=== PATIENT | male | born 1995 | race Caucasian/White ===

== ENCOUNTER 2016-11-24 08:27 | Emergency (ER) ==
[2016-11-24] MEDS ORDERED: LIDOCAINE 1 % AMP 5 ML (SUTURES) SUBCUT STA (08:41)
[2016-11-24 08:50] VITALS: BP 112/71; TEMP 98.3; BMI 20.2
[2016-11-24 09:11] LABS: BASOPHILS % (AUTO) 0.4 % (0.0-3.0); EOSINOPHILS % (AUTO) 0.4 % (0.0-7.0); HEMATOCRIT 43.9 % (42.0-52.0); HEMOGLOBIN 15.1 g/dl (14.0-18.0); IMMATURE GRANULOCYTE % (AUTO) 0.4 % (0.0-5.0); LYMPHOCYTES # (AUTO) 1.5 K/uL (0.60-3.4); LYMPHOCYTES % (AUTO) 14.8 (10.0-50.0); MEAN CORPUSCULAR HEMOGLOBIN 30.5 pg (27.0-31.0); MEAN CORPUSCULAR HGB CONC 34.4 (31.8-35.4); MEAN CORPUSCULAR VOLUME 88.7 fl (80.0-94.0); MONOCYTES # (AUTO) 0.6 K/uL (0.4-2.0); MONOCYTES % (AUTO) 5.8 (0-10); NEUTROPHILS # (AUTO) 7.8 K/ul (2.0-6.9); NEUTROPHILS % (AUTO) 78.2; PLATELET COUNT 177 10^3/uL (140-440); RED BLOOD COUNT 4.95 10^6/ul (4.70-6.10); WHITE BLOOD COUNT 9.92 K/ul (4.2-10.2)
[2016-11-24 09:25] LABS: PARTIAL THROMBOPLASTIN TIME 23.2 SEC (23.9-40.0); PROTHROMBIN TIME 11.5 SEC (9.3-11.0)
[2016-11-24 09:34] LABS: COCAIN SCREEN,URINE NEGATIVE (NEGATIVE)
[2016-11-24 09:37] LABS: ALBUMIN 4.6 g/dL (3.4-5.0); ALBUMIN/GLOBULIN RATIO 1.48; ANION GAP 11.2; BILIRUBIN,TOTAL 0.59 mg/dL (0.00-1.20); BUN/CREATININE RATIO 13.33; CALCIUM 9.7 mg/dL (8.2-10.2); CREATININE 1.2 mg/dL (0.60-1.10); POTASSIUM 4.2 mmol/L (3.5-5.1); TOTAL PROTEIN 7.7 g/dL (6.4-8.2)
[2016-11-24 09:37] LABS: ACETAMINOPHEN < 3 ug/ml (10-30); SALICYLATE < 5.0 mg/dL (2.8-20.0)
--- NOTE | 2016-11-24 09:40 | ED.PDOC ---
General ED Provider: Dr. KATIE CARRANZA Chief Complaint: Overdose Stated Complaint: OVERDOSE XANAX Time Seen by Physician: 08:32 Mode of Arrival: Ambulance Information Source: Patient Exam Limitations: No limitations Nursing and Triage Documentation Reviewed and Agree: Yes EENT Complaint Exam - Dental/Oral Complaint/Exam Mechanism of Injury: No known trauma Onset/Duration: TOOK 3 XANAX THIS MORNING 8 AM Symptoms Are: Resolved Initial Severity: Mild Current Severity: Mild (HAS DENTAL PAIN PILLS WERE TAKEN FOR PAIN CONTROL NO SUICIDAL IDEATION, PLAN SAME THING FOR HOMOCIDAL ISSUES) Aggravating: Reports: Heat, Cold, Chewing Alleviating: Reports: None Associated Signs and Symptoms: Denies: Swelling, Discharge, Fever, Foul odor, Foul taste in mouth Related History: Reports: Similar episode Cardiac Risk Factors: Reports: None Dental/Oral Surgical History: Reports: None Tooth Findings: Present: Gross decay, Gross caries, Dental fracture Cervical Lymphadenopathy Present: No Facial Swelling Present: No Bleeding Present: No Oropharynx Findings: Absent: Clots, Active bleeding Septal Hematoma: No Foreign Body Present: No Dysphagia Present: No Drooling Present: No Asymmetrical Tonsillar Swelling Present: No Uvula Midline: No Anastasia-tonsillar Fluctuence: No Trismus Present: No Palatal Petechiae Present: No Scarlatinaform Rash Present: No Teeth Picture: 1 - DECAY , BROKEN Differential Diagnoses: Dental Caries Review of Systems - Review Of Systems Constitutional: Reports: No symptoms Eyes: Reports: No symptoms Ears, Nose, Mouth, Throat: Reports: No symptoms Respiratory: Reports: No symptoms Cardiac: Reports: No symptoms GI: Reports: No symptoms : Reports: No symptoms Musculoskeletal: Reports: No symptoms Skin: Reports: No symptoms Neurological: Reports: No symptoms Endocrine: Reports: No symptoms Hematologic/Lymphatic: Reports: No symptoms All Other Systems: Reviewed and Negative Past Medical History - Past Medical History Previously Healthy: Yes Endocrine: Reports: None Cardiovascular: Reports: None Respiratory: Reports: None Hematological: Reports: None Gastrointestinal: Reports: None Genitourinary: Reports: None Neuro/Psych: Reports: None Musculoskeletal: Reports: None Cancer: Reports: None - Surgical History General Surgical History: Reports: None - Family History Family History: Reports: None - Social History Smoking Status: Current some day smoker Hx Substance Use: Yes Alcohol Screening: None Physical Exam - Physical Exam Appearance: Well-appearing, No pain distress, Well-nourished Eyes: IMANI, EOMI, Conjunctiva clear ENT: Ears normal, Nose normal, Oropharynx normal Respiratory: Airway patent, Breath sounds clear, Breath sounds equal, Respirations nonlabored Cardiovascular: RRR, Pulses normal, No rub, No murmur GI/: Soft, Nontender, No masses, Bowel sounds normal, No Organomegaly Musculoskeletal: Normal strength, ROM intact, No edema, No calf tenderness Skin: Warm, Dry, Normal color Neurological: Sensation intact, Motor intact, Reflexes intact, Cranial nerves intact, Alert, Oriented Psychiatric: Affect appropriate, Mood appropriate Critical Care Note - Critical Care Note Total Time (mins): 0 Course - Course Hematology/Chemistry: 11/24/16 09:08 Orders, Labs, Meds: Lab Review 11/24/16 11/24/16 09:08 09:13 WBC 9.92 RBC 4.95 Hgb 15.1 Hct 43.9 MCV 88.7 MCH 30.5 MCHC 34.4 RDW Coeff of Maria Teresa 12.3 Plt Count 177 Immature Gran % (Auto) 0.4 Neut % (Auto) 78.2 Lymph % (Auto) 14.8 Mccreary % (Auto) 5.8 Eos % (Auto) 0.4 Baso % (Auto) 0.4 Immature Gran # (Auto) 0.0 Neut # 7.8 H Lymph # 1.5 Mccreary # 0.6 Eos # 0.0 Baso # 0.0 PT 11.5 H INR 1.12 APTT 23.2 L Urine Opiates Screen Positive Ur Oxycodone Screen Negative Urine Methadone Screen Negative Ur Propoxyphene Screen Negative Ur Barbiturates Screen Negative U Tricyclic Antidepress Negative Ur Phencyclidine Scrn Negative Ur Amphetamine Screen Negative U Methamphetamines Scrn Negative U Benzodiazepines Scrn Positive Urine Cocaine Screen Negative U Cannabinoids Screen Positive Orders Category Date Time Status EKG-(ED ONLY) Stat CARDIO 11/24/16 08:41 Completed ACETAMINOPHEN Stat LAB 11/24/16 08:41 Received CBC W/ AUTO DIFF Stat LAB 11/24/16 09:08 Completed COMPREHENSIVE METABOLIC PANEL Stat LAB 11/24/16 09:08 Received PARTIAL THROMBOPLASTIN TIME Stat LAB 11/24/16 09:08 Completed PT WITH INR Stat LAB 11/24/16 09:08 Completed SALICYLATE Stat LAB 11/24/16 08:41 Received URINE DRUG SCREEN (RAPID FOR ED) [DRUG SCREEN, URINE, LAB 11/24/16 09:13 Completed RAPID] Stat Lidocaine HCl/Pf [Lidocaine 1 % Amp 5 ml (Sutures)] MEDS 11/24/16 08:41 Discontinued 5 ml SUBCUT ONCE STA Medications Discontinued Medications Generic Name Dose Route Start Last Admin Trade Name Freq PRN Reason Stop Dose Admin Lidocaine HCl 5 ml 11/24/16 08:41 Lidocaine 1 % Amp 5 Ml (Sutures) SUBCUT 11/24/16 08:42 ONCE STA Vital Signs: Temp Pulse Resp BP Pulse Ox 11/24/16 08:32 98.3 F 115 H 20 112/71 99 Departure - Departure Time of Disposition: 09:41 (DENIED TAKING PAIN MEDS AGAIN TOOK XANAX FOR DENTAL PAIN, DURING DISCHARGE RAY WAS PRESENT ) Disposition: HOME SELF-CARE Discharge Problem: Drug overdose, Pain, dental Instructions: Dental Abscess (ED), Toothache (ED), Benzodiazepine Overdose (ED) Condition: Good Pt referred to PMD for follow-up: No Additional Instructions: Please call your Family Physician as soon as possible to schedule a follow-up appointment. Prescriptions: Hydrocodone/Acetaminophen [[place] 5-325 Tablet] 1 each PO Q6HR PRN #7 tablet PRN Reason: PAIN Clindamycin HCl 300 mg PO Q8HR #21 capsule Allergies/Adverse Reactions: Allergies amoxicillin Adverse Reaction (Verified 11/24/16 08:32) amoxicillin trihydrate [From Augmentin] Adverse Reaction (Verified 11/24/16 08: 32) potassium clavulanate [From Augmentin] Adverse Reaction (Verified 11/24/16 08:32 ) Home Medications: Ambulatory Orders Alprazolam [Xanax] 0.5 mg PO QID 11/24/16 Clindamycin HCl 300 mg PO Q8HR #21 capsule 11/24/16 Hydrocodone/Acetaminophen [[place] 5-325 Tablet] 1 each PO Q6HR PRN #7 tablet Disposition Discussed With: Patient
== END 2016-11-24 10:00 | disposition home or self-care (01) ==
LOC: ED 08:27
DX: T42.4X1A Poisoning by benzodiazepines, accidental (unintentional), initial encounter (principal); K08.89 Other specified disorders of teeth and supporting structures; K02.7 Dental root caries; S02.5XXA Fracture of tooth (traumatic), initial encounter for closed fracture; F17.210 Nicotine dependence, cigarettes, uncomplicated
CPT/HCPCS: 36415; 80053; 80306; 80307; 85025; 85610; 85730; 93005; 93010; 99283

== ENCOUNTER 2017-03-16 00:42 | Emergency (ER) ==
[2017-03-16 00:52] VITALS: BP 137/77; TEMP 98.9; BMI 19.5
[2017-03-16] MEDS ORDERED: CLEOCIN PO STA (01:37)
--- NOTE | 2017-03-16 01:40 | ED.PDOC ---
General ED Provider: Dr. SOWMYA ROSALES Chief Complaint: Tooth Problem Stated Complaint: been hurting in the rt lower gum, and swollen, draianing something. pain 06/12 Time Seen by Physician: 01:37 Mode of Arrival: Walk-In Information Source: Patient Nursing and Triage Documentation Reviewed and Agree: Yes EENT Complaint Exam - Dental/Oral Complaint/Exam Mechanism of Injury: No known trauma Symptoms Are: Still present Timing: Constant Initial Severity: Moderate Character: Reports: Dull, Aching Aggravating: Reports: Heat, Cold, Chewing Alleviating: Reports: None Associated Signs and Symptoms: Reports: Swelling, Foul odor, Foul taste in mouth Related History: Reports: Similar episode Cardiac Risk Factors: Reports: None Dental/Oral Surgical History: Reports: None Tooth Findings: Present: Percussion tenderness, Gross decay, Abcess Cervical Lymphadenopathy Present: No Facial Swelling Present: No Bleeding Present: No Teeth Picture: 1 - caries, swollen gums Differential Diagnoses: Dental Abcess Review of Systems - Review Of Systems Constitutional: Reports: No symptoms Eyes: Reports: No symptoms Ears, Nose, Mouth, Throat: Reports: Mouth pain, Mouth swelling Respiratory: Reports: No symptoms Cardiac: Reports: No symptoms GI: Reports: No symptoms : Reports: No symptoms Musculoskeletal: Reports: No symptoms Skin: Reports: No symptoms Neurological: Reports: No symptoms Endocrine: Reports: No symptoms Hematologic/Lymphatic: Reports: No symptoms All Other Systems: Reviewed and Negative Past Medical History - Past Medical History Previously Healthy: Yes Endocrine: Reports: None Cardiovascular: Reports: None Respiratory: Reports: None Hematological: Reports: None Gastrointestinal: Reports: None Genitourinary: Reports: None Neuro/Psych: Reports: None Musculoskeletal: Reports: None Cancer: Reports: None - Surgical History General Surgical History: Reports: None - Family History Family History: Reports: None - Social History Smoking Status: Current some day smoker Smoking Cessation Counseling Time: > 3 min - 10 min Hx Substance Use: No Alcohol Screening: None - Immunizations Tetanus Shot up to Date: Yes Physical Exam - Physical Exam Appearance: Well-appearing, No pain distress, Well-nourished Eyes: IMANI, EOMI, Conjunctiva clear ENT: Ears normal, Nose normal, Oropharynx normal Respiratory: Airway patent, Breath sounds clear, Breath sounds equal, Respirations nonlabored Cardiovascular: RRR, Pulses normal, No rub, No murmur GI/: Soft, Nontender, No masses, Bowel sounds normal, No Organomegaly Musculoskeletal: Normal strength, ROM intact, No edema, No calf tenderness Skin: Warm, Dry, Normal color Neurological: Sensation intact, Motor intact, Reflexes intact, Cranial nerves intact, Alert, Oriented Psychiatric: Affect appropriate, Mood appropriate Critical Care Note - Critical Care Note Total Time (mins): 0 Course - Course Orders, Labs, Meds: Orders Category Date Time Status Clindamycin HCl [Cleocin] MEDS 03/16/17 01:37 Stat 300 mg PO ONCE STA Ketorolac Tromethamine [Toradol] MEDS 03/16/17 01:37 Stat 30 mg IM ONCE STA Vital Signs: Temp Pulse Resp BP Pulse Ox 03/16/17 00:46 98.9 F 104 H 20 137/77 99 Departure - Departure Time of Disposition: 01:41 Disposition: HOME SELF-CARE Discharge Problem: Dental abscess Instructions: Dental Abscess (ED) Condition: Stable Pt referred to PMD for follow-up: Yes (dentist\) Additional Instructions: needs f/u with dentist, hygiene discussed Prescriptions: Clindamycin HCl 300 mg PO TID #15 capsule Hydrocodone/Acetaminophen [[place] 5-325 Tablet] 1 tab PO TID PRN #12 tablet PRN Reason: PAIN Allergies/Adverse Reactions: Allergies amoxicillin Adverse Reaction (Verified 03/16/17 00:51) amoxicillin trihydrate [From Augmentin] Adverse Reaction (Verified 03/16/17 00: 51) potassium clavulanate [From Augmentin] Adverse Reaction (Verified 03/16/17 00:51 ) Home Medications: Ambulatory Orders Clindamycin HCl 300 mg PO TID #15 capsule 03/16/17 Hydrocodone/Acetaminophen [[place] 5-325 Tablet] 1 tab PO TID PRN #12 tablet 03/16 Disposition Discussed With: Patient
[2017-03-16] MEDS: TORADOL IM STA ×2 (01:48→01:53)
== END 2017-03-16 01:53 | disposition home or self-care (01) ==
LOC: ED 00:42
DX: K04.7 Periapical abscess without sinus (principal); F17.210 Nicotine dependence, cigarettes, uncomplicated
CPT/HCPCS: 99282

== ENCOUNTER 2017-07-27 23:48 | Emergency (ER) ==
[2017-07-27 23:59] VITALS: BP 121/68; TEMP 98.9; BMI 19.1
[2017-07-28] MEDS ORDERED: CLEOCIN PO STA (00:18)
[2017-07-28] MEDS ORDERED: NORCO 10-325 PO STA (00:18)
--- NOTE | 2017-07-28 00:21 | ED.PDOC ---
General ED Provider: Dr. FANI RIVERA-ER Chief Complaint: Tooth Problem Stated Complaint: my tooth is swollen and it hurts Time Seen by Physician: 00:19 Mode of Arrival: Walk-In Information Source: Patient Exam Limitations: No limitations Nursing and Triage Documentation Reviewed and Agree: Yes EENT Complaint Exam - Dental/Oral Complaint/Exam Mechanism of Injury: No known trauma Onset/Duration: 2 daysa Symptoms Are: Still present Timing: Constant Initial Severity: Mild Current Severity: Moderate Location: right lower molar Character: Reports: Dull, Aching, Throbbing Aggravating: Reports: Heat, Cold, Chewing Alleviating: Reports: None Associated Signs and Symptoms: Reports: Swelling. Denies: Discharge, Fever, Foul odor, Foul taste in mouth Related History: Reports: Similar episode, Previous tooth problem Cardiac Risk Factors: Reports: None Dental/Oral Surgical History: Reports: None Tooth Findings: Present: Percussion tenderness, Gross decay, Gross caries Cervical Lymphadenopathy Present: No Facial Swelling Present: No Bleeding Present: No Oropharynx Findings: Absent: Clots, Active bleeding Septal Hematoma: No Foreign Body Present: No Dysphagia Present: No Drooling Present: No Asymmetrical Tonsillar Swelling Present: No Uvula Midline: Yes Anastasia-tonsillar Fluctuence: No Trismus Present: No Palatal Petechiae Present: No Scarlatinaform Rash Present: No Differential Diagnoses: Dental Abcess, Dental Caries, Gingivitis, Odontogenic Pain, Periodontic Disease Review of Systems - Review Of Systems Constitutional: Reports: No symptoms Eyes: Reports: No symptoms Ears, Nose, Mouth, Throat: Reports: Mouth pain, Mouth swelling Respiratory: Reports: No symptoms Cardiac: Reports: No symptoms GI: Reports: No symptoms : Reports: No symptoms Musculoskeletal: Reports: No symptoms Skin: Reports: No symptoms Neurological: Reports: No symptoms Endocrine: Reports: No symptoms Hematologic/Lymphatic: Reports: No symptoms All Other Systems: Reviewed and Negative Past Medical History - Past Medical History Previously Healthy: Yes Endocrine: Reports: None Cardiovascular: Reports: None Respiratory: Reports: None Hematological: Reports: None Gastrointestinal: Reports: None Genitourinary: Reports: None Neuro/Psych: Reports: None Musculoskeletal: Reports: None Cancer: Reports: None - Surgical History General Surgical History: Reports: None - Family History Family History: Reports: None - Social History Smoking Status: Former smoker Hx Substance Use: Yes (WEED IN THE PAST) Alcohol Screening: None - Immunizations Tetanus Shot up to Date: Yes Physical Exam - Physical Exam Appearance: Well-appearing, No pain distress, Well-nourished Pain Distress: Moderate Eyes: IMANI, EOMI, Conjunctiva clear ENT: Ears normal, Nose normal, Oropharynx normal (noted right lower molar and premolar carious and surrounding gums are erythematous and swollen) Neck: Supple Respiratory: Airway patent, Breath sounds clear, Breath sounds equal, Respirations nonlabored Cardiovascular: RRR, Pulses normal, No rub, No murmur GI/: Soft, Nontender, No masses, Bowel sounds normal, No Organomegaly Musculoskeletal: Normal strength, ROM intact, No edema, No calf tenderness Skin: Warm Neurological: Sensation intact, Motor intact, Reflexes intact, Cranial nerves intact, Alert, Oriented Psychiatric: Affect appropriate, Mood appropriate Critical Care Note - Critical Care Note Total Time (mins): 0 Course - Course Orders, Labs, Meds: Orders Category Date Time Status Clindamycin HCl [Cleocin] MEDS 07/28/17 00:18 Stat 300 mg PO ONCE STA Hydrocodone Bit/Acetaminophen [[place] 10-325] MEDS 07/28/17 00:18 Stat 1 tab PO ONCE STA Vital Signs: Temp Pulse Resp BP Pulse Ox 07/27/17 23:48 98.9 F 90 20 121/68 98 Departure - Departure Time of Disposition: 00:22 Disposition: HOME SELF-CARE Discharge Problem: Toothache Instructions: Dental Caries (GEN) Condition: Good Pt referred to PMD for follow-up: Yes Additional Instructions: clindamycin 150mg tid x 7 days--norco 7.5mg q 4hrs prn pain #10--f/u with dentist sourav Allergies/Adverse Reactions: Allergies amoxicillin Adverse Reaction (Verified 07/27/17 23:59) amoxicillin trihydrate [From Augmentin] Adverse Reaction (Verified 07/27/17 23: 59) potassium clavulanate [From Augmentin] Adverse Reaction (Verified 07/27/17 23:59 ) Home Medications: Ambulatory Orders Olanzapine [Zyprexa] 10 mg PO BEDTIME 07/27/17 Disposition Discussed With: Patient
== END 2017-07-28 00:29 | disposition home or self-care (01) ==
LOC: ED 23:48
DX: K08.89 Other specified disorders of teeth and supporting structures (principal); K02.7 Dental root caries
CPT/HCPCS: 99282

== ENCOUNTER 2018-03-19 19:50 | Emergency (ER) ==
[2018-03-19] MEDS ORDERED: MORPHINE 4 MG/ML VIAL IVP STA (19:55)
[2018-03-19] MEDS ORDERED: ZOFRAN 4 MG/2 ML IVP STA (19:55)
[2018-03-19] MEDS ORDERED: TORADOL IVP STA (19:55)
[2018-03-19 19:57] VITALS: BMI 20.9
[2018-03-19] MEDS ORDERED: DILAUDID 0.5 MG/0.5 ML SYRINGE IM STA (20:12)
[2018-03-19] MEDS ORDERED: ZOFRAN ODT PO STA (20:14)
--- NOTE | 2018-03-19 20:25 | DI ---
EXAM: Right wrist; PA, lateral, and oblique views HISTORY: Trauma, limited range of motion FINDINGS: The joint spaces, bone density, and soft tissues are grossly normal. No fracture or subluxa tion are detected. OPINION: No fracture or subluxation.
--- NOTE | 2018-03-19 20:25 | DI ---
EXAM: Right forearm; AP and lateral views HISTORY: Trauma with limited range of motion FINDINGS: There is possible soft tissue gas in the distal volar forearm. The joint spaces and bone d ensity are maintained. There is a probable chronic calcification near the mid to distal ulna at the palmar side. No fracture or subluxation are detected. The bone density is normal. OPINION: Possible laceration at the volar distal forearm. No acute radiopaque foreign bodies, fracture, or [place] bluxation.
--- NOTE | 2018-03-19 20:52 | ED.PDOC ---
General ED Provider: Dr. ALETHEA NGUYEN Chief Complaint: Wrist Pain/Injury Stated Complaint: Pateint fell off a horse landing on the right arm with and extended wrist. Has severe pain with flexion and extension on the right wrist. had severe pain came by ambulance. Time Seen by Physician: 19:55 Information Source: Patient, EMT Nursing and Triage Documentation Reviewed and Agree: Yes Does patient meet sepsis criteria?: No If yes, has appropriate treatment been initiated?: No System Inflammatory Response Syndrome: Not Applicable Sepsis Protocol: For patient's 13 years and over: Temp is 96.8 and below OR 101 and greater Pulse >90 BPM Resp >20/minute Acutely Altered Mental Status Are patient's symptoms suggestive of a new infection, such as: -Pneumonia -Skin, Soft Tissue -Endocarditis -UTI -Bone, Joint Infection -Implantable Device -Acute Abdominal Infection -Wound Infection -Meningitis -Blood Stream Catheter Infection -Unknown Musculoskeletal Complaint Exam - Hand/Wrist Complaint/Exam Location of Pain: Reports: Right, Hand, Wrist Mechanism of Injury: Reports: Trauma Onset/Duration: 1 hour ago Symptoms Are: Still present Onset of Pain: Reports: Immediate Initial Severity: Severe Current Severity: Moderate Location: Reports: Diffuse Character: Reports: Aching, Throbbing Alleviating: Reports: Rest Aggravating: Reports: Movement Associated Signs and Symptoms: Reports: Swelling Dominant Hand: Right Related Surgical History: Reports: None Hand/Wrist Findings: Present: Swelling Tenderness: Present: Metacarpal (PATIENT WAS THROWN OFF HORSE, LANDING ON RIGHT WRIST. NO LOC. NO NECK OR BACK INJURY. DISTAL PULSES GOOD.) Differential Diagnoses: Closed Fracture, Sprain, Strain Review of Systems - Review Of Systems Constitutional: Reports: No symptoms Eyes: Reports: No symptoms Ears, Nose, Mouth, Throat: Reports: No symptoms Respiratory: Reports: No symptoms Cardiac: Reports: No symptoms GI: Reports: No symptoms : Reports: No symptoms Musculoskeletal: Reports: Back pain, Joint pain Skin: Reports: No symptoms Neurological: Reports: No symptoms Endocrine: Reports: No symptoms Hematologic/Lymphatic: Reports: No symptoms All Other Systems: Reviewed and Negative Past Medical History - Past Medical History Previously Healthy: Yes Endocrine: Reports: None Cardiovascular: Reports: None Respiratory: Reports: None Hematological: Reports: None Gastrointestinal: Reports: None Genitourinary: Reports: None Neuro/Psych: Reports: None Musculoskeletal: Reports: None Cancer: Reports: None - Surgical History General Surgical History: Reports: None - Family History Family History: Reports: None - Social History Smoking Status: Current every day smoker, Heavy tobacco smoker Hx Substance Use: No Alcohol Screening: None - Immunizations Tetanus Shot up to Date: Yes Physical Exam - Physical Exam Appearance: Well-appearing Pain Distress: Moderate Eyes: IMANI, EOMI, Conjunctiva clear ENT: Ears normal, Nose normal, Oropharynx normal Neck: Supple Respiratory: Airway patent, Breath sounds clear, Breath sounds equal, Respirations nonlabored Cardiovascular: RRR, Pulses normal, No rub, No murmur Musculoskeletal: Limited ROM Neurological: Sensation intact, Motor intact, Reflexes intact, Cranial nerves intact, Alert, Oriented Interpretation - Radiology Interpretation Radiology Interpretation By: Radiologist Radiology Results: Negative Exam Interpreted: Other (wrist and forearm x ray ) Critical Care Note - Critical Care Note Total Time (mins): 0 Course - Course Orders, Labs, Meds: Orders Category Date Time Status Wrist splint [ED SPLINT APPLICATION] .ONCE EMERGENCY 03/19/18 20:49 Active Hydromorphone HCl [Dilaudid 0.5 mg/0.5 ml Syringe] MEDS 03/19/18 20:12 Discontinued 1 mg IM ONCE STA Ketorolac Tromethamine [Toradol] MEDS 03/19/18 19:55 Discontinued 30 mg IVP ONCE STA Ondansetron [Zofran Odt] MEDS 03/19/18 20:14 Discontinued 4 mg PO ONCE STA FOREARM, RIGHT 2 VIEWS Stat RADS 03/19/18 19:56 Completed WRIST, RIGHT 3 VIEWS Stat RADS 03/19/18 19:56 Completed Medications Discontinued Medications Generic Name Dose Route Start Last Admin Trade Name Jaredq PRN Reason Stop Dose Admin Hydromorphone HCl 1 mg 03/19/18 20:12 03/19/18 20:18 Dilaudid IM 03/19/18 20:13 1 mg ONCE STA Administration Ketorolac Tromethamine 30 mg 03/19/18 19:55 03/19/18 20:18 Toradol IVP 03/19/18 19:56 30 mg ONCE STA Administration Ondansetron HCl 4 mg 03/19/18 20:14 03/19/18 20:18 Zofran Odt PO 03/19/18 20:15 4 mg ONCE STA Administration Vital Signs: Temp Pulse Resp BP Pulse Ox 03/19/18 20:55 98.3 F 82 16 124/84 98 03/19/18 19:51 98.6 F 94 H 20 140/84 99 Departure - Departure Time of Disposition: 20:50 Disposition: HOME SELF-CARE Discharge Problem: Right wrist sprain Qualifiers: Encounter type: initial encounter Qualified Code(s): S63.501A - Unspecified sprain of right wrist, initial encounter Instructions: Wrist Injury (ED), Wrist Sprain (ED) Condition: Stable Pt referred to PMD for follow-up: Yes IPMP verified?: No Additional Instructions: Take medications as prescribed Follow up with PCP in 2-3 days Use splint as needed. Prescriptions: Ibuprofen [Motrin] 600 mg PO Q6H PRN #30 tablet PRN Reason: Analgesia Allergies/Adverse Reactions: Allergies amoxicillin Adverse Reaction (Verified 07/27/17 23:59) amoxicillin trihydrate [From Augmentin] Adverse Reaction (Verified 07/27/17 23: 59) potassium clavulanate [From Augmentin] Adverse Reaction (Verified 07/27/17 23:59 ) Home Medications: Ambulatory Orders Ibuprofen [Motrin] 600 mg PO Q6H PRN #30 tablet 03/19/18 Disposition Discussed With: Patient
[2018-03-19 21:31] VITALS: BP 124/84; TEMP 98.3
== END 2018-03-19 21:07 | disposition home or self-care (01) ==
LOC: ED 19:50
DX: S63.501A Unspecified sprain of right wrist, initial encounter (principal); V80.010A Animal-rider injured by fall from or being thrown from horse in noncollision accident, initial encounter; F17.210 Nicotine dependence, cigarettes, uncomplicated
CPT/HCPCS: 96372; 99282

== ENCOUNTER 2019-01-17 21:31 | Emergency (ER) ==
[2019-01-17 21:35] VITALS: BP 125/74; TEMP 98.7
--- NOTE | 2019-01-17 21:44 | ED.PDOC ---
General ED Provider: Dr. FANI RIVERA-ER Chief Complaint: Tooth Problem Stated Complaint: my tooth hurts and middle is out of it Time Seen by Physician: 21:42 Mode of Arrival: Walk-In Information Source: Patient Exam Limitations: No limitations Nursing and Triage Documentation Reviewed and Agree: Yes Does patient meet sepsis criteria?: No System Inflammatory Response Syndrome: Not Applicable Sepsis Protocol: For patient's 13 years and over: Temp is 96.8 and below OR 101 and greater Pulse >90 BPM Resp >20/minute Acutely Altered Mental Status Are patient's symptoms suggestive of a new infection, such as: -Pneumonia -Skin, Soft Tissue -Endocarditis -UTI -Bone, Joint Infection -Implantable Device -Acute Abdominal Infection -Wound Infection -Meningitis -Blood Stream Catheter Infection -Unknown EENT Complaint Exam - Dental/Oral Complaint/Exam Mechanism of Injury: Unknown Onset/Duration: 2 days Symptoms Are: Still present Timing: Constant Initial Severity: Mild Current Severity: Moderate Location: left upper premolar Character: Reports: Dull, Aching, Throbbing Aggravating: Reports: None Alleviating: Reports: None Associated Signs and Symptoms: Denies: Swelling, Discharge, Fever, Foul odor, Foul taste in mouth Tooth Findings: Present: Percussion tenderness, Gross caries Cervical Lymphadenopathy Present: No Facial Swelling Present: No Bleeding Present: No Septal Hematoma: No Foreign Body Present: No Dysphagia Present: No Drooling Present: No Asymmetrical Tonsillar Swelling Present: No Uvula Midline: Yes Anastasia-tonsillar Fluctuence: No Trismus Present: No Palatal Petechiae Present: No Scarlatinaform Rash Present: No Differential Diagnoses: Dental Caries Review of Systems - Review Of Systems Constitutional: Reports: No symptoms Eyes: Reports: No symptoms Ears, Nose, Mouth, Throat: Reports: Mouth pain Respiratory: Reports: No symptoms Cardiac: Reports: No symptoms GI: Reports: No symptoms : Reports: No symptoms Musculoskeletal: Reports: No symptoms Skin: Reports: No symptoms Neurological: Reports: No symptoms Endocrine: Reports: No symptoms Hematologic/Lymphatic: Reports: No symptoms All Other Systems: Reviewed and Negative Past Medical History - Past Medical History Previously Healthy: Yes Endocrine: Reports: None Cardiovascular: Reports: None Respiratory: Reports: None Hematological: Reports: None Gastrointestinal: Reports: None Genitourinary: Reports: None Neuro/Psych: Reports: None Musculoskeletal: Reports: None Cancer: Reports: None - Surgical History General Surgical History: Reports: None - Family History Family History: Reports: None - Social History Smoking Status: Former smoker, Vaping Hx Substance Use: Yes (WEED IN THE PAST) Alcohol Screening: None - Immunizations Tetanus Shot up to Date: Yes Physical Exam - Physical Exam Appearance: Well-appearing, No pain distress, Well-nourished Pain Distress: Moderate Eyes: IMANI, EOMI, Conjunctiva clear ENT: Ears normal, Nose normal, Oropharynx normal Neck: Supple Respiratory: Airway patent, Breath sounds clear, Breath sounds equal, Respirations nonlabored Cardiovascular: RRR, Pulses normal, No rub, No murmur GI/: Soft Musculoskeletal: Normal strength, ROM intact, No edema, No calf tenderness Skin: Warm, Dry, Normal color Neurological: Sensation intact, Motor intact, Reflexes intact, Cranial nerves intact, Alert, Oriented Psychiatric: Affect appropriate, Mood appropriate Critical Care Note - Critical Care Note Total Time (mins): 0 Course - Course Vital Signs: Temp Pulse Resp BP Pulse Ox 01/17/19 21:32 98.7 F 89 20 125/74 99 Departure - Departure Time of Disposition: 21:44 Disposition: HOME SELF-CARE Discharge Problem: Toothache Instructions: Dental Abscess (ED) Condition: Good Pt referred to PMD for follow-up: Yes IPMP verified?: No Additional Instructions: clindamycin 150mg tid x 7 days---norco 7.5mg q 4hrs prn pain #10---f/u dentist sourav Allergies/Adverse Reactions: Allergies amoxicillin Adverse Reaction (Verified 01/17/19 21:36) Hives amoxicillin trihydrate [From Augmentin] Adverse Reaction (Verified 01/17/19 21: 35) Hives potassium clavulanate [From Augmentin] Adverse Reaction (Verified 01/17/19 21:36 ) Hives Home Medications: Ambulatory Orders Ibuprofen [Motrin] 600 mg PO Q6H PRN #30 tablet 03/19/18 Disposition Discussed With: Patient, Family
== END 2019-01-17 21:45 | disposition home or self-care (01) ==
LOC: ED 21:31
DX: K08.89 Other specified disorders of teeth and supporting structures (principal)
CPT/HCPCS: 99282

== ENCOUNTER 2019-04-16 19:36 | Emergency (ER) ==
[2019-04-16 19:42] VITALS: BP 122/76; TEMP 98.2
[2019-04-16] MEDS ORDERED: SODIUM CHLORIDE 1,000 ML IV STA ×2 (19:49→20:12)
[2019-04-16] MEDS ORDERED: TORADOL IVP STA (19:50)
--- NOTE | 2019-04-16 20:04 | ED.PDOC ---
General ED Provider: Dr. ALETHEA NGUYEN Chief Complaint: Chest Pain Stated Complaint: Patient is a 23 year old male who comes to the ER by ambulance with complaint of chest pain that started today after smoking some "Marijuana" States that his chest pain is located on the left and describes it as sharp. NO associated nausea. No shortness of breath but has anxitey thinks that the [place] was probably laced with something else. Time Seen by Physician: 19:45 Mode of Arrival: Ambulance Information Source: Patient, EMT Exam Limitations: No limitations Nursing and Triage Documentation Reviewed and Agree: Yes Does patient meet sepsis criteria?: No If yes, has appropriate treatment been initiated?: No System Inflammatory Response Syndrome: Not Applicable Sepsis Protocol: For patient's 13 years and over: Temp is 96.8 and below OR 101 and greater Pulse >90 BPM Resp >20/minute Acutely Altered Mental Status Are patient's symptoms suggestive of a new infection, such as: -Pneumonia -Skin, Soft Tissue -Endocarditis -UTI -Bone, Joint Infection -Implantable Device -Acute Abdominal Infection -Wound Infection -Meningitis -Blood Stream Catheter Infection -Unknown Cardiovascular Complaint Exam - Chest Pain Complaint/Exam Onset: Sudden Duration: 1 hours Symptoms Are: Still present Timing: Constant Length of Chest Pain Episodes: 1 hour Initial Severity: Severe Current Severity: Moderate Location: Reports: Left anterior Pain Radiates: Reports: Left shoulder, Left arm Character: Reports: Pressure, Sharp Aggravating: Reports: Deep breaths Associated Signs and Symptoms: Denies: Nausea, Vomiting, Fever, Palpitations, Cough, Hemoptysis, Back pain, Abdominal pain, Dizziness, Short of air, Calf pain , Calf swelling History of Healthcare-Acquired Pneumonia: Reports: No AMI/ACS Risk Factors: Reports: None TAD Risk Factors: Reports: None Pulmonary Embolism Risk Factors: Reports: None Prior Care for this Complaint: No Recent Stress Test: No Recent Echo/LV Function: No JVD Present: No Subcutaneous Emphysema Present: No Diminshed Breath Sounds: No Reproducible Chest Wall Pain: No Bilateral Pulses Present: No Unequal Pulses Noted: No If Risk Factors for AMI/ACS Consider: EKG, Cardiac Enzymes Differential Diagnoses: Unstable Angina, Chest Wall Pain, GI Diseasae Quality Indicators For Acute MT or Cardiac Chest Pain: EKG in 10min. (no ischemia ) Review of Systems - Review Of Systems Constitutional: Reports: No symptoms Eyes: Reports: No symptoms Ears, Nose, Mouth, Throat: Reports: No symptoms Respiratory: Reports: No symptoms Cardiac: Reports: Chest pain GI: Reports: No symptoms : Reports: No symptoms Musculoskeletal: Reports: No symptoms Skin: Reports: No symptoms Neurological: Reports: Anxiety Endocrine: Reports: No symptoms Hematologic/Lymphatic: Reports: No symptoms All Other Systems: Reviewed and Negative Past Medical History - Past Medical History Previously Healthy: Yes Endocrine: Reports: None Cardiovascular: Reports: None Respiratory: Reports: None Hematological: Reports: None Gastrointestinal: Reports: None Genitourinary: Reports: None Neuro/Psych: Reports: Schizophrenia Musculoskeletal: Reports: None Cancer: Reports: None Other Pertinent Past Medical History: HEAT STROKE CAUSING RENAL FAILURE 2017, - Surgical History General Surgical History: Reports: None - Family History Family History: Reports: None - Social History Smoking Status: Former smoker, Vaping Hx Substance Use: Yes (marijuana) Alcohol Screening: None - Immunizations Tetanus Shot up to Date: Yes Physical Exam - Physical Exam Appearance: Ill-appearing Ill-appearing: Mild Pain Distress: Moderate Eyes: IMANI, EOMI, Conjunctiva clear ENT: Ears normal, Nose normal, Oropharynx normal Neck: Supple Respiratory: Airway patent, Breath sounds clear, Breath sounds equal, Respirations nonlabored Cardiovascular: RRR, Pulses normal, No rub, No murmur GI/: Soft, Nontender, No masses, Bowel sounds normal, No Organomegaly Musculoskeletal: Normal strength, ROM intact, No edema, No calf tenderness Skin: Warm, Dry, Normal color Neurological: Alert, Oriented Psychiatric: Anxious Interpretation - Radiology Interpretation Radiology Interpretation By: ED Physician Radiology Results: Negative Exam Interpreted: 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 Rate: Normal Rhythm: Sinus Ectopy: None - EKG Interpretation Time of EKG #1: 20:14 Rate: Normal Rhythm: Sinus Ectopy: None [place]: NL Interpretation: incomplete RBBB Critical Care Note - Critical Care Note Total Time (mins): 35 Course - Course Hematology/Chemistry: 04/16/19 19:50 04/16/19 19:50 Orders, Labs, Meds: Lab Review 04/16/19 04/16/19 04/16/19 19:50 19:50 20:40 WBC 7.12 RBC 4.32 L Hgb 13.2 L Hct 38.7 L MCV 89.6 MCH 30.6 MCHC 34.1 RDW Coeff of Maria Teresa 13.3 Plt Count 179 Immature Gran % (Auto) 0.3 Neut % (Auto) 68.6 Lymph % (Auto) 21.6 [place] % (Auto) 7.7 Eos % (Auto) 1.5 Baso % (Auto) 0.3 Immature Gran # (Auto) 0.0 Neut # (Auto) 4.9 Lymph # (Auto) 1.5 [place] # (Auto) 0.6 Eos # (Auto) 0.1 Baso # (Auto) 0.0 Sodium 140.9 Potassium 3.98 Chloride 110.5 H Carbon Dioxide 23.3 Anion Gap 11.08 BUN 12.6 Creatinine 1.01 Estimated GFR (MDRD) 92.00 BUN/Creatinine Ratio 12.47 Glucose 109.1 H Calcium 8.69 Total Bilirubin 0.32 AST 19.9 ALT 19.1 Alkaline Phosphatase 68.8 Total Creatine Kinase 174.3 H CK-MB (CK-2) 0.602 CK-MB (CK-2) % 0.3400 Troponin I < 0.012 Total Protein 6.93 Albumin 4.44 Globulin 2.49 Albumin/Globulin Ratio 1.78 Urine Color Urine Clarity Urine pH Ur Specific Say[place] Urine Protein Urine Glucose (UA) Urine Ketones Urine Blood Urine Nitrite Urine Bilirubin Urine Urobilinogen Ur Leukocyte Esterase Urine Opiates Screen Negative Ur Oxycodone Screen Negative Urine Methadone Screen Negative Ur Propoxyphene Screen Negative Ur Barbiturates Screen Negative U Tricyclic Antidepress Negative Ur Phencyclidine Scrn Negative Ur Amphetamine Screen Positive U Methamphetamines Scrn Positive U Benzodiazepines Scrn Negative Urine Cocaine Screen Negative U Cannabinoids Screen Positive 04/16/19 20:40 WBC RBC Hgb Hct MCV MCH MCHC RDW Coeff of Maria Teresa Plt Count Immature Gran % (Auto) Neut % (Auto) Lymph % (Auto) [place] % (Auto) Eos % (Auto) Baso % (Auto) Immature Gran # (Auto) Neut # (Auto) Lymph # (Auto) [place] # (Auto) Eos # (Auto) Baso # (Auto) Sodium Potassium Chloride Carbon Dioxide Anion Gap BUN Creatinine Estimated GFR (MDRD) BUN/Creatinine Ratio Glucose Calcium Total Bilirubin AST ALT Alkaline Phosphatase Total Creatine Kinase CK-MB (CK-2) CK-MB (CK-2) % Troponin I Total Protein Albumin Globulin Albumin/Globulin Ratio Urine Color Yellow Urine Clarity Clear Urine pH 5.5 Ur Specific [place] >=1.030 Urine Protein Negative Urine Glucose (UA) Negative Urine Ketones Negative Urine Blood Negative Urine Nitrite Negative Urine Bilirubin Negative Urine Urobilinogen 0.2 Ur Leukocyte Esterase Negative Urine Opiates Screen Ur Oxycodone Screen Urine Methadone Screen Ur Propoxyphene Screen Ur Barbiturates Screen U Tricyclic Antidepress Ur Phencyclidine Scrn Ur Amphetamine Screen U Methamphetamines Scrn U Benzodiazepines Scrn Urine Cocaine Screen U Cannabinoids Screen Orders Category Date Time Status EKG-(ED ONLY) Stat CARDIO 04/16/19 19:49 Completed ED IV/MEDIPORT/POWERPORT .ONCE EMERGENCY 04/16/19 19:49 Active CBC W/ AUTO DIFF Stat LAB 04/16/19 19:50 Completed COMPREHENSIVE METABOLIC PANEL Stat LAB 04/16/19 19:50 Completed CREATINE KINASE Stat LAB 04/16/19 19:50 Completed DRUG SCREEN, URINE, RAPID Stat LAB 04/16/19 20:40 Completed TROPONIN I Stat LAB 04/16/19 19:50 Completed UA [URINALYSIS C & S IF INDICATED] Stat LAB 04/16/19 20:40 Completed 0.9 % Sodium Chloride [Saline Flush] MEDS 04/16/19 19:49 Discontinued 1 syr IVF PRN PRN Ibuprofen [Motrin] MEDS 04/16/19 20:14 Discontinued 800 mg PO ONCE STA Ketorolac Tromethamine [Toradol] MEDS 04/16/19 19:50 Discontinued 30 mg IVP ONCE STA Mag-Al Plus//Lidocaine [Gi Cocktail] MEDS 04/16/19 20:12 Discontinued 30 ml PO ONCE STA Sodium Chloride 0.9% [Sodium Chloride] 1,000 ml MEDS 04/16/19 19:49 Discontinued IV 125 mls/hr Sodium Chloride 0.9% [Sodium Chloride] 1,000 ml MEDS 04/16/19 20:12 Discontinued IV BOLUS CHEST, 1V AP ONLY Stat RADS 04/16/19 19:49 Completed Medications Discontinued Medications Generic Name Dose Route Start Last Admin Trade Name Freq PRN Reason Stop Dose Admin Al Hydroxide/Mg Hydroxide 30 ml 04/16/19 20:12 04/16/19 20:21 Gi Cocktail PO 04/16/19 20:13 30 ml ONCE STA Administration Sodium Chloride 1,000 mls @ 125 mls/hr 04/16/19 19:49 04/16/19 19:55 Sodium Chloride IV 04/17/19 03:48 125 mls/hr .Q8H STA Administration Sodium Chloride 1,000 mls @ 1,000 mls/hr 04/16/19 20:12 04/16/19 20:38 Sodium Chloride IV 04/16/19 21:11 1,000 mls/hr BOLUS STA Administration Ibuprofen 800 mg 04/16/19 20:14 04/16/19 20:22 Motrin PO 04/16/19 20:15 800 mg ONCE STA Administration Ketorolac Tromethamine 30 mg 04/16/19 19:50 04/16/19 19:55 Toradol IVP 04/16/19 19:51 30 mg ONCE STA Administration Sodium Chloride 1 syr 04/16/19 19:49 04/16/19 19:55 Saline Flush IVF 1 syr PRN PRN Administration To flush IV Vital Signs: Temp Pulse Resp BP Pulse Ox 04/16/19 19:36 98.2 F 102 H 20 122/76 98 DEVORAH Risk Score Age >/= 65: No >/= 3 CAD Risk Factors: No Known CAD (Stenosis >/= 50%): No ASA Use in Past 7 Days: No Severe Angina (>/= 2 episodes in 24 hours): No EKG ST Changes >/= 0.5mm: No Postive Cardiac Marker: No DEVORAH Total Score: 0 DEVORAH Risk Score: Risk Score Odds of by 30D 0 0.1 (0.1-0.2) 1 0.3 (0.2-0.3) 2 0.4 (0.3-0.5) 3 0.7 (0.6-0.9) 4 1.2 (1.0-1.5) 5 2.2 (1.9-2.6) 6 3.0 (2.5-3.6) 7 4.8 (3.8-6.1) Departure - Departure Time of Disposition: 21:30 Disposition: HOME SELF-CARE Discharge Problem: Chest pain, Methamphetamine intoxication Instructions: Methamphetamine Abuse (ED) Condition: Fair Pt referred to PMD for follow-up: Yes IPMP verified?: No Additional Instructions: STOP USING DRUGS FOLLOW UP WITH PCP IN 3 DAYS Allergies/Adverse Reactions: Allergies amoxicillin Adverse Reaction (Verified 04/16/19 19:39) Hives amoxicillin trihydrate [From Augmentin] Adverse Reaction (Verified 04/16/19 19: 39) Hives potassium clavulanate [From Augmentin] Adverse Reaction (Verified 04/16/19 19:39 ) Hives Home Medications: Ambulatory Orders 1 [No Reported Medications] 04/16/19 Disposition Discussed With: Patient
[2019-04-16] MEDS ORDERED: GI COCKTAIL PO STA (20:12)
[2019-04-16] MEDS ORDERED: MOTRIN PO STA (20:14)
--- NOTE | 2019-04-16 21:16 | DI ---
EXAM: Chest one view HISTORY: Chest pain COMPARISON: 05/17/2013 TECHNIQUE: Single view of the chest was performed FINDINGS: The lungs are clear. There is no pleural effusion or pneumothorax. The heart is normal i n size. The mediastinal contour is normal. There are no acute abnormalities of the bones. IMPRESSION: No acute cardiopulmonary process.
== END 2019-04-16 21:38 | disposition home or self-care (01) ==
LOC: ED 19:36
DX: R07.9 Chest pain, unspecified (principal); F15.129 Other stimulant abuse with intoxication, unspecified; F12.90 Cannabis use, unspecified, uncomplicated; Z72.0 Tobacco use
CPT/HCPCS: 36415; 80053; 80306; 81001; 82550; 82553; 84484; 85025; 93005; 93010; 96361; 96374; 96375; 99283